=== PATIENT | female | born 1990 | race Caucasian/White ===

== ENCOUNTER 2017-07-17 10:25 | Emergency (ER) | payer SELFPAY ==
[~2017-07-17] VITALS: Ht 162.6 cm; Wt 52.2 kg
[2017-07-17 10:30] VITALS: BP 109/58
[2017-07-17] MEDS ORDERED: CLIN150C14 PO (11:10)
[2017-07-17] MEDS ORDERED: TRAM-48 PO (11:10)
--- NOTE | 2017-07-17 11:10 | PHYS DOC ---
Past Medical History Past Medical History: Bipolar, Depression Past Surgical History: No Surgical History Alcohol Use: Rarely Drug Use: None Adult General Chief Complaint Chief Complaint: DENTAL PROBLEM HPI HPI Patient is a 26 year old female with history of bipolar and depression who presents today with right lower gum dental pain and swelling that began 3 days ago. Patient denies any fever, denies any trismus. She states she does not have a dentist. Review of Systems Review of Systems Constitutional: Denies fever or chills [] Eyes: Denies change in visual acuity, redness, or eye pain [] HENT: right lower gum dental pain and swelling Musculoskeletal: Denies back pain or joint pain [] Integument: Denies rash or skin lesions [] Neurologic: Denies headache, focal weakness or sensory changes [] Allergies Allergies Allergies Coded Allergies Type Severity Reaction Last Updated Verified No Known Drug Allergies 07/17/17 No Physical Exam Physical Exam Constitutional: Well developed, well nourished, no acute distress, non-toxic appearance. [] HENT: Normocephalic, atraumatic, bilateral external ears normal, oropharynx moist, no oral exudates, nose normal. [] Right exterior jaw is swollen. There is scattered dental caries throughout her teeth. There is mild diffuse swelling with redness on the gum line of the right lower molars and premolars with no fluctuance. Skin: Warm, dry, no erythema, no rash. [] Extremities: No tenderness, no cyanosis, no clubbing, ROM intact, no edema. [] Neurologic: Alert and oriented X 3, normal motor function, normal sensory function, no focal deficits noted. [] Psychologic: Affect normal, judgement normal, mood normal. [] Current Patient Data Vital Signs Vital Signs Date Time Temp Pulse Resp B/P (MAP) Pulse Ox O2 Delivery O2 Flow Rate FiO2 07/17/17 10:30 97.8 94 18 100 Room Air 97.8 EKG EKG [] Radiology/Procedures Radiology/Procedures [] Course & Med Decision Making Course & Med Decision Making Pertinent Labs and Imaging studies reviewed. (See chart for details) Patient is in the ED with a dental abscess. Discharged with clindamycin and Ultram for pain. Follow-up with a dentist in 1-2 weeks Lanre Disclaimer Dragon Disclaimer This electronic medical record was generated, in whole or in part, using a voice recognition dictation system. Departure Departure Impression: Primary Impression: Dental abscess Additional Impression: Infected dental caries Disposition: 01 HOME, SELF-CARE Condition: STABLE Referrals: NO PCP (PCP) follow up with your dentist in 1-2 weeks Patient Instructions: Dental Abscess, Dental Caries Additional Instructions: You were seen for a dental abscess. Ensure you complete your antibiotics. Follow -up with a dentist as soon as possible. Scripts Tramadol Hcl (ULTRAM) 50 Mg Tablet 1 TAB PO Q6HRS, #30 TAB Prov: JIM LIMON APRN 07/17/17 Clindamycin Hcl (CLINDAMYCIN HCL) 150 Mg Capsule 3 CAP PO TID, #90 CAP Prov: JIM LIMON APRN 07/17/17 Problem Qualifiers JIM LIMON APRN Jul 17, 2017 11:10
== END 2017-07-17 11:18 | disposition home or self-care (01) ==
LOC: ER 10:25
DX: K04.7 Periapical abscess without sinus (principal); K02.9 Dental caries, unspecified; F31.9 Bipolar disorder, unspecified
CPT/HCPCS: 99283

== ENCOUNTER 2017-08-15 22:46 | Emergency (ER) | payer SELFPAY ==
[~2017-08-15] VITALS: Ht 162.6 cm; Wt 54.4 kg
[~2017-08-15 22:46] MED LIST: CLIN150C14 PO; TRAM-48 PO
[2017-08-15] MEDS ORDERED: EPINEPHrine 1 MG/ML VIAL IM ONE (23:30)
[2017-08-15] MEDS ORDERED: IV NORMAL SALINE 1000ML BAG 1,000 ML IV SCH (23:30)
[2017-08-15] MEDS ORDERED: methylPREDNISolone SOD SUCC PF 125 MG/2 ML VIAL. IV ONE (23:30)
[2017-08-15] MEDS ORDERED: diphenhydrAMINE 50 MG/ML VIAL IV ONE (23:30)
[2017-08-15] MEDS ORDERED: 0.9 % SODIUM CHLORIDE 10 ML DISP.SYRIN. IV PRN (23:30)
[2017-08-15] MEDS ORDERED: FAMOTIDINE 20 MG/2 ML VIAL IVP ONE (23:30)
--- NOTE | 2017-08-16 00:05 | PHYS DOC ---
Past Medical History Past Medical History: Bipolar, Depression Past Surgical History: No Surgical History Smoking: Cigarettes, Less than 1pk/day Alcohol Use: Occasionally Drug Use: None Adult General Chief Complaint Chief Complaint: ITCHING HPI HPI She is a pleasant 26-year-old female with a history of depression who presents with urticaria that began earlier today. Patient met she's recently moved in with her grandparents and she's been exposed to a great deal of [place] spray. She denies any restaurant problems denies any sore throat fevers chills abdominal pain nausea vomiting or other symptoms. When she woke this morning she began having itching all of her body. She started new job 2 days ago at [employer]. She's noticed the itching is gotten progressively worse with now an urticarial rash over her entire body. She denies any shortness of breath, tightness across her chest, chest pain or other symptoms. She denies any recent change in medications or travel outside the country. Her only new environment exposures are 2 new job and her grandparents house is not taking any medications at home to try to treat the symptoms. This patient does smoke she does drink on occasion does not use illegal IV drugs. She denies any history of sexual transmitted diseases, joint pain or joint swelling. Review of Systems Review of Systems Constitutional: Denies fever or chills [] Eyes: Denies change in visual acuity, redness, or eye pain [] HENT: Denies nasal congestion or sore throat [] Respiratory: Denies cough or shortness of breath [] Cardiovascular: No additional information not addressed in HPI [] GI: Denies abdominal pain, nausea, vomiting, bloody stools or diarrhea [] : Denies dysuria or hematuria [] Musculoskeletal: Denies back pain or joint pain [] Integument: sHe describes a general rash over her upper and lower extremities and her body. Neurologic: Denies headache, focal weakness or sensory changes [] Current Medications Current Medications Current Medications Medications (Trade) Dose Ordered Sig/Bernadette Start Time Stop Time Status Last Admin Dose Admin Diphenhydramine HCl (Benadryl) 50 mg 1X ONCE 08/16/17 00:45 08/16/17 00:46 Epinephrine HCl (Adrenalin) 0.3 mg 1X ONCE 08/15/17 23:30 08/15/17 23:31 DC 08/15/17 23:39 0.3 MG Famotidine (Pepcid) 20 mg 1X ONCE 08/15/17 23:30 08/15/17 23:31 DC 08/15/17 23:41 20 MG Methylprednisolone Sodium Succinate (SOLU-Medrol 125MG VIAL) 125 mg 1X ONCE 08/15/17 23:30 08/15/17 23:31 DC 08/15/17 23:41 125 MG Prednisone (Prednisone) 50 mg 1X ONCE 08/16/17 00:45 08/16/17 00:46 Sodium Chloride (Normal Saline Flush) 10 ml QSHIFT PRN 08/15/17 23:30 08/15/17 23:57 10 ML Allergies Allergies Allergies Coded Allergies Type Severity Reaction Last Updated Verified No Known Drug Allergies 07/17/17 No Physical Exam Physical Exam Vital signs recorded on the chart within normal limits. Constitutional: Well developed, well nourished, no acute distress, non-toxic appearance. [] HENT: Normocephalic, atraumatic, bilateral external ears normal, oropharynx moist, no oral exudates, nose normal. [] Eyes: PERRLA, EOMI, conjunctiva normal, no discharge. [] Neck: Normal range of motion, no tenderness, supple, no stridor. [] Cardiovascular:Heart rate regular rhythm, no murmur [] Lungs & Thorax: Bilateral breath sounds clear to auscultation [] Skin: Warm, dry, no erythema, urticarial rash noted over the entire body of the abdomen upper and lower legs and neck. There is no palm or sole involvement patient is no joint swelling or joint pain Neurologic: Normal gait and normal sensation normal strength in all limbs. Current Patient Data Vital Signs Vital Signs Date Time Temp Pulse Resp B/P (MAP) Pulse Ox O2 Delivery O2 Flow Rate FiO2 08/15/17 23:45 98.4 82 128/58 (81) 98 98.4 08/15/17 23:21 16 Room Air EKG EKG [] Radiology/Procedures Radiology/Procedures [] Course & Med Decision Making Course & Med Decision Making Pertinent Labs and Imaging studies reviewed. (See chart for details) She with a significant urticarial rash. I decided to treat her with IV site Medrol, Benadryl and Pepcid also provided IM dose of epinephrine to see if that helps improve her symptoms. Time is now midnight patient is improved but still having significant rash. She is also cold from the fluids being administered through the IV. At this point she'll be turned over to the nurse practitioner supporting staff at this time Atilio Motta. Pending response to medications 0000: Care assumed from Dr. Easley. Patient has previously received Solu- Medrol, Benadryl and Pepcid as well as IM epinephrine. The rash on her upper extremities and, the rash on the trunk persist. The rash extends from the Neck to the hips but does not includes the lower extremities. It is a macular, pink rash that blanches to pressure. There are no vesicles, bullae, pustules. Patient does complain of pruritus. She will be given an additional 50 mg of Benadryl and prednisone 50 mg by mouth. Lungs are clear auscultate throughout and she has no other systemic allergic symptoms. In further discussion. The patient has in the last 24 hours smoke a different brand of cigarettes, branch she has not previously utilized. Is questionable whether this would cause the allergic reaction she is experiening and I have asked her to discontinue this brand of cigarettes, preferably quit smoking altogether, but if that is not possible then return to her previous brand of cigarettes. Patient states she has began a job at [employer] last 2 days but works in packing type jobs in the past and has had multiple exposure to plastics, latex and other materials used in this job. She states she has no known allergy to any of these. [] Dragon Disclaimer Dragon Disclaimer This electronic medical record was generated, in whole or in part, using a voice recognition dictation system. Departure Departure Impression: Primary Impression: Urticarial rash Disposition: 01 HOME, SELF-CARE Referrals: NO PCP (PCP) [facility] Patient Instructions: Allergies, Generic, Rash Scripts Famotidine (PEPCID) 40 Mg Tablet 40 MG PO HS, #20 TAB Prov: ATILIO MOTTA APRN 08/16/17 Prednisone (PREDNISONE) 50 Mg Tablet 1 TAB PO DAILY, #4 TAB Start medication on 08/17/2017 Prov: ATILIO MOTTA APRN 08/16/17 Diphenhydramine Hcl (BENADRYL) 25 Mg Capsule 50 MG PO Q6H Y for itching, #30 CAP Prov: ATILIO MOTTA APRN 08/16/17 AWILDA EASLEY MD Aug 16, 2017 00:05 ATILIO MOTTA APRN Aug 16, 2017 00:49
[2017-08-16 00:45] VITALS: BP 109/64
[2017-08-16] MEDS ORDERED: diphenhydrAMINE 50 MG/ML VIAL IVP ONE (00:45)
[2017-08-16] MEDS ORDERED: predniSONE 10 MG TABLET PO ONE (00:45)
[2017-08-16] MEDS ORDERED: PRED50TA PO (00:48)
[2017-08-16] MEDS ORDERED: FAMO40TA57 PO (00:48)
[2017-08-16] MEDS ORDERED: DIPH25CA58 PO (00:48)
== END 2017-08-16 00:55 | disposition home or self-care (01) ==
LOC: ER 22:46
DX: L50.9 Urticaria, unspecified (principal); F31.9 Bipolar disorder, unspecified; F17.210 Nicotine dependence, cigarettes, uncomplicated
CPT/HCPCS: 96361; 96372; 96374; 96375; 99284; J0171; J1200; J2930; J7030; J7512; S0028

== ENCOUNTER 2017-09-17 07:51 | Emergency (ER) | payer SELFPAY ==
[~2017-09-17] VITALS: Ht 162.6 cm; Wt 56.7 kg
[2017-09-17 07:51] VITALS: BP 129/77
[~2017-09-17 07:51] MED LIST changes: +DIPH25CA58 PO; +FAMO40TA57 PO; +PRED50TA PO
[2017-09-17] MEDS ORDERED: CLIN150C14 PO (08:19)
--- NOTE | 2017-09-17 08:19 | PHYS DOC ---
Past Medical History Past Medical History: Bipolar, Depression Past Surgical History: No Surgical History Alcohol Use: Occasionally Drug Use: None Adult General Chief Complaint Chief Complaint: DENTAL PROBLEM HPI HPI Patient is a 26 year old female who presents with ongoing dental infection for the last 2 years. Patient states she typically gets clindamycin and this clears the infection. She states she is getting new medical insurance that includes dental starting tomorrow and would like the infection cleared before she sees a dentist. Patient denies any fever or trismus. Review of Systems Review of Systems Constitutional: Denies fever or chills [] HENT: Dental pain and infection Integument: Denies rash or skin lesions [] Neurologic: Denies headache, focal weakness or sensory changes [] All other systems were reviewed and found to be within normal limits, except as documented in this note. Allergies Allergies Allergies Coded Allergies Type Severity Reaction Last Updated Verified No Known Drug Allergies 07/17/17 No Physical Exam Physical Exam Constitutional: Well developed, well nourished, no acute distress, non-toxic appearance. [] HENT: Normocephalic, atraumatic, bilateral external ears normal, oropharynx moist, no oral exudates, nose normal. [] small dental abscess noted around tooth #21 with no fluctuance, mild gum erythema around the right lower molars. Extremities: No tenderness, no cyanosis, no clubbing, ROM intact, no edema. [] Neurologic: Alert and oriented X 3, normal motor function, normal sensory function, no focal deficits noted. [] Psychologic: Affect normal, judgement normal, mood normal. [] Current Patient Data Vital Signs Vital Signs Date Time Temp Pulse Resp B/P (MAP) Pulse Ox O2 Delivery O2 Flow Rate FiO2 09/17/17 07:51 98.1 74 16 95 Room Air 98.1 EKG EKG [] Radiology/Procedures Radiology/Procedures [] Course & Med Decision Making Course & Med Decision Making Pertinent Labs and Imaging studies reviewed. (See chart for details) Patient has a dental abscess. Discharged with clindamycin. Follow-up with her dentist in 1-2 weeks. Dragon Disclaimer Dragon Disclaimer This electronic medical record was generated, in whole or in part, using a voice recognition dictation system. Departure Departure Impression: Primary Impression: Dental abscess Disposition: 01 HOME, SELF-CARE Condition: STABLE Referrals: NO PCP (PCP) Follow-up with your dentist as soon as possible Patient Instructions: Dental Abscess Additional Instructions: You were seen for dental abscess. Take the prescribed antibiotic until completed. Follow-up with your dentist as soon as possible. Scripts Clindamycin Hcl (CLINDAMYCIN HCL) 150 Mg Capsule 3 CAP PO TID, #90 CAP Prov: JIM LIMON APRN 09/17/17 JIM LIMON APRN Sep 17, 2017 08:19
== END 2017-09-17 08:38 | disposition home or self-care (01) ==
LOC: ER 07:51
DX: K04.7 Periapical abscess without sinus (principal); F31.9 Bipolar disorder, unspecified
CPT/HCPCS: 99283